=== PATIENT | female | born 1985 | race Caucasian/White ===

== ENCOUNTER 2018-01-27 23:40 | Inpatient (IN) | payer OTHER ==
[~2018-01-27] VITALS: Ht 157.5 cm; Wt 63.5 kg
[~2018-01-27 23:40] MED LIST: IBUPROFEN800 MG PO; PREDNISONE10 MG PO
[2018-01-28] VITALS: BP 129/75
--- NOTE | 2018-01-28 00:18 | History & Physical Pre-Op ---
General Information and HPI MD Statement: I have seen and personally examined JENARO ESQUIVLE and documented this H&P. The patient is a 32 year old F who presented with a patient stated chief complaint of [contractions]. History of Present Illness: 32-year-old 2 para 1001 at weeks gestation presents to childbirth center complaining of contractions since 5 PM on patient is 5-6 cm intact denies rupture of membranes headache edema has had adequate care Allergies/Medications Allergies: Coded Allergies: sulfamethoxazole (From [facility]) (Intermediate, RASH 01/28/18) trimethoprim (From [facility]) (Intermediate, RASH 01/28/18) Home Med list Ibuprofen 800 MG TABLET 800 MG PO Q6P PRN PAIN SCALE 4-6 Prednisone 10 MG TABLET 0 TAB PO DAILY rash 4 tabs for 3 days 3 tabs for 3 days 2 tabs for 3 days 1 tab for 3 days Past History Surgical History Pertinent Surgical History: none Past Family/Social History Psychosocial History Services at Home None Smoking Status: Never Smoked Review of Systems Review of Systems: -13 point review of systems Exam & Diagnostic Data Last 24 Hrs of Vital Signs/I&O Vital Signs Date Time Temp Pulse Resp B/P B/P Pulse O2 O2 Flow FiO2 Mean Ox Delivery Rate 05/ 0000 129/75 Intake & Output / 0800 05/03 0000 05/02 1600 Intake Total Output Total Balance Patient 140 lb Weight Physical Exam: T white female HEENT anicteric Lungs clear Abdomen estimated weight 3800 g 56 cm 90% vertex -3 Assessment/Plan Assessment/Plan: Assessment term Plan epidural observe for As Ranked By This Provider Problem List: 1.
[2018-01-28 00:33] LABS: ABSOLUTE BASOPHIL COUNT 0 /CUMM (0.0-0.2); ABSOLUTE EOSINOPHIL COUNT 0 /CUMM (0.0-0.7); ABSOLUTE LYMPH COUNT 2.2 /CUMM (1.2-3.4); ABSOLUTE MONOCYTE COUNT 0.6 /CUMM (0.10-0.60); BASOPHIL % 0.3 % (0.0-2.0); EOSINOPHIL % 0.5 % (0-5); GRANULOCYTE % 64.2 % (42.2-75.2); HEMATOCRIT 30.3 % (37-47); MEAN CORPUSCULAR HGB 28.1 PG (27.0-31.0); MEAN CORPUSCULAR HGB CONC 33.9 G/DL (33.0-37.0); MEAN CORPUSCULAR VOLUME 82.9 FL (81.0-99.0); MEAN PLATELET VOLUME 9.4 FL (7.4-10.4); PLATELET COUNT 192 /CUMM (130-400); RBC DISTRIBUTION WIDTH 15.5 % (11.5-14.5); RED BLOOD CELL CT 3.65 /CUMM (4.20-5.40); WHITE BLOOD CELL COUNT 7.8 /CUMM (4.8-10.8)
--- NOTE | 2018-01-28 03:56 | Labor & Delivery Summary ---
Delivery Summary Vaginal Delivery: Vaginal: vertex Placenta: Placenta: spontanteous, normal, 3 vessel Anesthesia: block Additional Comments: OF VIABLE FEMALE INFANTOVER 2ND DEGREE LACERATION .PLACENTA BY CCT2ND DEGREE LACERATION REPAIRED IN LAYERS WITH 30 .FW 4090.3 VESSEL ORD B+
[2018-01-29 09:08] LABS: ABSOLUTE BASOPHIL COUNT 0.1 /CUMM (0.0-0.2); ABSOLUTE EOSINOPHIL COUNT 0.1 /CUMM (0.0-0.7); ABSOLUTE GRANULOCYTE CT 4.9 /CUMM (1.4-6.5); ABSOLUTE LYMPH COUNT 1.5 /CUMM (1.2-3.4); ABSOLUTE MONOCYTE COUNT 0.3 /CUMM (0.10-0.60); BASOPHIL % 0.8 % (0.0-2.0); EOSINOPHIL % 1.1 % (0-5); HEMATOCRIT 27.3 % (37-47); MEAN CORPUSCULAR HGB 27.2 PG (27.0-31.0); MEAN CORPUSCULAR HGB CONC 32.2 G/DL (33.0-37.0); MEAN CORPUSCULAR VOLUME 84.4 FL (81.0-99.0); MEAN PLATELET VOLUME 9.1 FL (7.4-10.4); PLATELET COUNT 141 /CUMM (130-400); RBC DISTRIBUTION WIDTH 15.6 % (11.5-14.5); RED BLOOD CELL CT 3.24 /CUMM (4.20-5.40); WHITE BLOOD CELL COUNT 6.9 /CUMM (4.8-10.8)
[2018-01-30] MEDS ORDERED: DOCUSATE SODIU100 M3 PO (05:48)
[2018-01-30] MEDS ORDERED: IBUPROFEN800 M1 PO (05:48)
== END 2018-01-30 10:40 | DRG 775 ==
LOC: CBCO 23:40 → GNO 23:50
PROVIDERS: Specialist
PROC: 10E0XZZ Delivery of Products of Conception, External Approach (ICD-10-PCS; principal; 2018-01-28)
PROC: 0KQM0ZZ Repair Perineum Muscle, Open Approach (ICD-10-PCS; principal; 2018-01-28)
DX: O70.1 Second degree perineal laceration during delivery (principal); Z37.0 Single live birth; Z3A.40 40 weeks gestation of pregnancy; Z88.1 Allergy status to other antibiotic agents; Z88.2 Allergy status to sulfonamides
CPT/HCPCS: GNOP; GNOS; 36415; J7120